=== PATIENT | female | born 1965 | race Caucasian/White ===

== ENCOUNTER 2016-12-26 10:11 | Emergency (ER) | payer BC ==
[2016-12-26 10:48] VITALS: BP 128/77
--- NOTE | 2016-12-26 11:05 | UC ---
Ear Complaint HPI - HPI Summary HPI Summary: RIGHT EAR PAIN X 3 DAYS + PND , NO SINUS PAIN , MILD SORE THROAT, NO FEVER, NO CHILLS - History of Current Complaint Chief Complaint: UCEar Stated Complaint: RIGHT EAR COMPLAINT Time Seen by Provider: 12/26/16 10:42 Hx Obtained From: Patient Hx Last Menstrual Period: "I don't remember." s/p Tubal Ligation Onset/Duration: Gradual Onset, Lasting Days - 3, Still Present Severity Initially: Moderate Severity Currently: Moderate Alleviating Factors: Nothing Associated Signs/Symptoms: Negative: Discharge, Hearing Loss, Foreign Body Sensation, Trauma to Ear, Swelling @, URI Symptoms - Allergies/Home Medications Allergies/Adverse Reactions: Allergies Allergy/AdvReac Type Severity Reaction Status Date / Time Amoxicillin Allergy Rash Verified 12/26/16 10:43 Home Medications: Home Medications Acetaminophen [Acetaminophen Extra Stren] 1,000 mg PO Q6H PRN 12/26/16 [History Confirmed 12/26/16] Cholecalciferol TAB* [Vitamin D TAB*] 2,000 units PO DAILY 12/26/16 [History Confirmed 12/26/16] PMH/Surg Hx/FS Hx/Imm Hx Previously Healthy: Yes - Surgical History Surgical History: Yes Surgery Procedure, Year, and Place: Right Knee ACL, 2015, [facility]; Left Wrist Cartiladge, 2013, [facility]; Tubal Ligation, ~ [place]; Appendectomy, ~1977 , [place] - Family History Known Family History: Negative: Diabetes - Social History Alcohol Use: Rare Substance Use Type: None Smoking Status (MU): Never Smoked Tobacco Household Exposure Type: Cigarettes - Immunization History Most Recent Influenza Vaccination: Not the Season Review of Systems Constitutional: Negative Skin: Negative Eyes: Negative ENT: Ear Ache - RIGHT EAR Respiratory: Negative Cardiovascular: Negative Gastrointestinal: Negative All Other Systems Reviewed And Are Negative: Yes Physical Exam Triage Information Reviewed: Yes Appearance: Well-Appearing, No Pain Distress, Well-Nourished Vital Signs: Initial Vital Signs Temp 98.1 F 12/26/16 10:41 Pulse 66 12/26/16 10:41 Resp 16 12/26/16 10:41 BP 128/77 12/26/16 10:41 Pulse Ox 100 12/26/16 10:41 Vital Signs Reviewed: Yes Eye Exam: Normal Eyes: Positive: Conjunctiva Clear ENT: Positive: Normal ENT inspection, Hearing grossly normal, Pharynx normal, TMs normal, Other: - + CERUMEN IMPACTION. Negative: Pharyngeal erythema, Nasal congestion, Nasal drainage, TM bulging, TM dull, TM red Neck: Positive: Supple, Nontender, No Lymphadenopathy Respiratory: Positive: Chest non-tender, Lungs clear, Normal breath sounds Cardiovascular: Positive: RRR, No Murmur, Pulses Normal Ear Complaint Course/Dx - Differential Dx/Diagnosis Provider Diagnoses: CERUMEN IMPACTION. [place] Discharge - Discharge Plan Condition: Stable Disposition: HOME Patient Education Materials: Cerumen Impaction (ED), Earache (ED) Referrals: Krystyna Silva MD [Primary Care Provider] - If Needed
== END 2016-12-26 11:52 | disposition home or self-care (01) ==
LOC: UCCORT 10:11
DX: H92.01 Otalgia, right ear (principal); H61.21 Impacted cerumen, right ear; Z88.1 Allergy status to other antibiotic agents
CPT/HCPCS: 99213; G0463